=== PATIENT | female | born 1965 | race Caucasian/White ===

== ENCOUNTER 2019-02-12 21:18 | Emergency (ER) | payer BC | END 2019-02-12 22:17 | disposition home or self-care (01) | LOC: MADERS 21:18 | DX: J06.9 Acute upper respiratory infection, unspecified (principal); F17.210 Nicotine dependence, cigarettes, uncomplicated; Z79.899 Other long term (current) drug therapy | CPT/HCPCS: 87081; 87430; 87804; 99283 ==

== ENCOUNTER 2019-03-25 11:17 | Outpatient (CLI) | payer BC ==
--- NOTE | 2019-03-25 11:44 | RAD ---
3 views left second toe: 03/25/2019 COMPARISON: None HISTORY: Injury, trauma, pain FINDINGS: No fracture or dislocation. No radiopaque foreign body or subcutaneous gas. IMPRESSION: No acute findings.
[2019-03-25 12:03] LABS: #Basophils 0.1 thou/uL (0.0-0.2); #Eosinphils 0.2 thou/uL (0.0-0.7); #Lymphocytes 1.6 thou/uL (1.20-3.40); #Monocytes 0.4 thou/uL (0.11-0.59); #Neutrophils 4.1 thou/uL (1.40-6.50); %Basophils 1.3 % (0.0-1.0); %Eosinophils 2.7 % (0.0-10.0); %Lymphocytes 25.2 % (21.0-51.0); %Neutrophils 63.8 % (42.0-75.0); Hemoglobin 13.3 g/dL (12.0-16.0); Mean Corpuscular HGB CONC 32.5 g/dL (32.0-36.0); Mean Corpuscular Hemoglobin 32.7 pg (27.0-31.0); Mean Corpuscular Volume 100.7 fL (78.0-98.0); Mean Platelet Volume 4.5 fL (7.4-10.4); Platelet Count 404 thou/uL (130-400); RBC Distribution Width 12.8 % (11.5-14.5); Red Blood Cell (RBC) Count 4.06 mill/uL (4.20-5.40); White Blood Cell (WBC) Count 6.4 thou/uL (4.8-10.8)
[2019-03-25 12:16] LABS: ALT (SGPT) 10 U/L (8-55); AST (SGOT) 19 U/L (5-34); Albumin 4.4 g/dL (3.5-5.0); Alkaline Phosphatase 78 U/L (40-150); Anion Gap 16 mmol/L (10-20); BUN (Urea Nitrogen) 10 mg/dL (9.8-20.1); Bilirubin, Total 0.3 mg/dL (0.2-1.2); Calc. Creatinine Clearance 0 mL/min (70-130); Calcium 9.5 mg/dL (7.8-10.44); Carbon Dioxide 25 mmol/L (22-29); Chloride 104 mmol/L (98-107); Estimated GFR-MDRD 89; Globulin 2.8 g/dL (2.4-3.5); Glucose 81 mg/dL (70-105); Potassium 4.6 mmol/L (3.5-5.1); Protein, Total 7.2 g/dL (6.0-8.3); Sodium 140 mmol/L (136-145)
[2019-03-25 12:36] LABS: Thyroid Stimulating Hormone 0.8811 uIU/mL (0.35-4.94)
[2019-03-25 16:49] LABS: Hemoglobin A1c 5.2 % (4.0-6.0)
[2019-03-25 17:15] LABS: Syphilis Antibody Nonreactive (Nonreactive)
[2019-03-25 17:17] LABS: HBSAg Index 0.62 S/CO (0-0.99); HIV (1/2) Antibody/Antigen Non-Reactive (NonReactive); Hep A IgM AB Non-Reactive (NonReactive); Hep B Surf Ag Non-Reactive S/CO (NonReactive); Hep C IgG Ab Non-Reactive (NonReactive)
[2019-03-25 17:23] LABS: HBCM Index 1.35 S/CO (0-0.79); Hepatitis B Core IgM Abs Reactive (NonReactive)
== END 2019-03-25 11:18 | disposition home or self-care (01) ==
LOC: MADLABBHPM 11:17
PROVIDERS: ATTEND Family Medicine
DX: M79.675 Pain in left toe(s) (principal); R63.4 Abnormal weight loss; Z87.898 Personal history of other specified conditions
CPT/HCPCS: 36415; 80053; 80074; 83036; 84443; 85025; 86780; 87389

== ENCOUNTER 2020-06-17 16:06 | Emergency (ER) | payer OTHER, SELFPAY ==
[~2020-06-17 16:06] MED LIST: Sodium Chloride 0.9% 1,000 ML BAG ONE
--- NOTE | 2020-06-17 17:46 | RAD ---
PORTABLE CHEST: 06/17/20 HISTORY: Syncope, fatigue. Heart size and mediastinum are within normal limits. The lungs are clear of any infiltrative process. Bones appear slightly demineralized. IMPRESSION: No active intrathoracic disease. POS: JOHN
[2020-06-17 18:40] LABS: #Basophils 0.1 thou/uL (0.0-0.2); #Lymphocytes 0.8 thou/uL (1.20-3.40); #Monocytes 0.3 thou/uL (0.11-0.59); %Basophils 1.6 % (0.0-1.0); %Eosinophils 0.4 % (0.0-10.0); %Lymphocytes 15.7 % (21.0-51.0); %Monocytes 6.1 % (0.0-10.0); %Neutrophils 76.1 % (42.0-75.0); Hemoglobin 15.7 g/dL (12.0-16.0); Mean Corpuscular HGB CONC 31.9 g/dL (32.0-36.0); Mean Corpuscular Hemoglobin 32.9 pg (27.0-31.0); Mean Corpuscular Volume 103.1 fL (78.0-98.0); Mean Platelet Volume 5.2 fL (7.4-10.4); Platelet Count 232 thou/uL (130-400); RBC Distribution Width 11.5 % (11.5-14.5); Red Blood Cell (RBC) Count 4.76 mill/uL (4.20-5.40); White Blood Cell (WBC) Count 5.3 thou/uL (4.8-10.8)
[2020-06-17 19:19] LABS: ALT (SGPT) 27 U/L (8-55); AST (SGOT) 41 U/L (5-34); Alkaline Phosphatase 100 U/L (40-110); Anion Gap 17 mmol/L (10-20); BUN (Urea Nitrogen) 10 mg/dL (9.8-20.1); Bilirubin, Total 0.3 mg/dL (0.2-1.2); Calc. Creatinine Clearance 0 mL/min (70-130); Calcium 8.3 mg/dL (7.8-10.44); Carbon Dioxide 23 mmol/L (22-29); Chloride 104 mmol/L (98-107); Estimated GFR-MDRD Greater than 90; Globulin 2.6 g/dL (2.4-3.5); Glucose 99 mg/dL (70-105); Potassium 4.2 mmol/L (3.5-5.1); Protein, Total 6.6 g/dL (6.0-8.3)
[2020-06-17 19:25] LABS: Sodium 140 mmol/L (136-145)
[2020-06-17 19:28] LABS: Bilirubin Negative (Negative); Blood, Urine Negative (Negative); Clarity Clear (Clear); Glucose, Urine (Dipstick) Negative (Negative); Ketone, Urine Negative (Negative); Leukocyte Negative (Negative); Nitrite Negative (Negative); Protein, Urine (Dipstick) Negative (Neg-Trace); Urobilinogen 0.2 mg/dL (Less than 2)
[2020-06-19 12:09] LABS: SARS-CoV-2 MS2 Positive; SARS-CoV-2 N Gene Negative; SARS-CoV-2 S Gene Negative; SARS-CoV-2 orf1ab Negative
== END 2020-06-17 19:48 | disposition home or self-care (01) ==
LOC: MADERS 16:06
DX: R53.83 Other fatigue (principal); Z20.828 Contact with and (suspected) exposure to other viral communicable diseases; Z87.891 Personal history of nicotine dependence; Z79.899 Other long term (current) drug therapy
CPT/HCPCS: 36415; 71045; 80053; 81003; 83880; 84443; 84484; 85025; 85379; 87635; 93005; J7050; U0003

== ENCOUNTER 2021-07-20 19:27 | Emergency (ER) | payer BC | END 2021-07-20 22:45 | disposition left against medical advice (07) | LOC: MADERS 19:27 | DX: Z53.21 Procedure and treatment not carried out due to patient leaving prior to being seen by health care provider (principal) ==

== ENCOUNTER 2022-05-15 22:17 | Emergency (ER) | payer BC | END 2022-05-15 22:30 | disposition left against medical advice (07) | LOC: MADERS 22:17 | DX: Z53.21 Procedure and treatment not carried out due to patient leaving prior to being seen by health care provider (principal) ==

== ENCOUNTER 2022-10-11 03:24 | Emergency (ER) | payer BC ==
[2022-10-11] MEDS ORDERED: Lorazepam 1 MG TAB ONE (04:13)
[2022-10-11 04:15] LABS: Bilirubin Negative (Negative); Blood, Urine Negative (Negative); Clarity Slightly Cloudy (Clear); Glucose, Urine (Dipstick) Negative (Negative); Ketone, Urine Trace mg/dL (Negative); Leukocyte Trace (Negative); Nitrite Positive (Negative); Protein, Urine (Dipstick) Negative (Neg-Trace); Urobilinogen 0.2 mg/dL (Less than 2)
[2022-10-11 04:35] LABS: Amphetamine Not Detected (NotDetected); Barbiturates Screen Not Detected (NotDetected); Benzodiazepine Screen Not Detected (NotDetected); Cocaine Metabolite Screen Not Detected (NotDetected); Medtox Control Line Valid? VALID (VALID); Methadone Not Detected (NotDetected); Methamphetamine Not Detected (NotDetected); Opiate Screen Not Detected (NotDetected); Oxycodone Screen Not Detected (NotDetected); Phencyclidine (PCP) Not Detected (NotDetected); THC/Cannabinoid Screen Not Detected (NotDetected); Tricyclic Screen Detected (NotDetected)
[2022-10-11 04:53] LABS: Bacteria/HPF 4+ HPF (None Seen); RBC/HPF 0-3 HPF (0-3); Transitional Epithelial 0-3 HPF (None Seen)
[2022-10-11 04:56] LABS: #Monocytes 0.5 thou/uL (0.11-0.59); #Neutrophils 2.4 thou/uL (1.40-6.50); %Basophils 1.3 % (0.0-1.0); %Eosinophils 0.3 % (0.0-10.0); %Lymphocytes 24.9 % (21.0-51.0); %Monocytes 12.3 % (0.0-10.0); %Neutrophils 61.3 % (42.0-75.0); Hemoglobin 14.8 g/dL (12.0-16.0); MDiff Complete? YES; Mean Corpuscular HGB CONC 34.3 g/dL (32.0-36.0); Mean Corpuscular Hemoglobin 34.1 pg (27.0-31.0); Mean Corpuscular Volume 99.4 fl (78.0-98.0); Mean Platelet Volume 5.9 fL (7.4-10.4); Platelet Count 136 10x3/uL (130-400); RBC Distribution Width 14.2 % (11.5-14.5); Red Blood Cell (RBC) Count 4.35 mill/uL (4.20-5.40); Target Cells SLIGHT = 2-5 cells (100X) (0-1/hpf); White Blood Cell (WBC) Count 3.9 10x3/uL (4.8-10.8)
[2022-10-11 05:01] LABS: ALT (SGPT) 116 U/L (8-55); AST (SGOT) 134 U/L (5-34); Acetaminophen Less than 10.0 mcg/mL (10.0-30.0); Albumin 4.5 g/dL (3.5-5.0); Alcohol 242 mg/dL (Less than 10); Alkaline Phosphatase 137 U/L (40-110); Anion Gap 22 mmol/L (10-20); BUN (Urea Nitrogen) 5 mg/dL (9.8-20.1); Bilirubin, Total 0.6 mg/dL (0.2-1.2); Calc. Creatinine Clearance 0 mL/min (70-130); Calcium 9.2 mg/dL (7.8-10.44); Carbon Dioxide 27 mmol/L (22-29); Chloride 97 mmol/L (98-107); Estimated GFR 104; Globulin 3.4 g/dL (2.4-3.5); Glucose 109 mg/dL (70-105); Potassium 2.9 mmol/L (3.5-5.1); Protein, Total 7.9 g/dL (6.0-8.3); Salicylate Less than 8.0 mg/dL (15.0-30.0); Sodium 143 mmol/L (136-145)
[2022-10-11 08:48] LABS: SARS-CoV-2 NAA Rapid Test Not Detected (NotDetected)
[2022-10-11] MEDS ORDERED: Magnesium Oxide 400 MG TAB ONE (09:55)
[2022-10-11] MEDS ORDERED: Potassium Chloride 20 MEQ TAB ONE (09:55)
== END 2022-10-11 10:03 | disposition home or self-care (01) ==
LOC: MADERS 03:24
DX: F10.129 Alcohol abuse with intoxication, unspecified (principal); E87.6 Hypokalemia; N39.0 Urinary tract infection, site not specified; F17.210 Nicotine dependence, cigarettes, uncomplicated; Y90.8 Blood alcohol level of 240 mg/100 ml or more; Z20.822 Contact with and (suspected) exposure to COVID-19
CPT/HCPCS: 80053; 80306; 80307; 81003; 81015; 84443; 85025; 87077; 87086; 87186; U0002

== ENCOUNTER 2023-04-20 22:31 | Emergency (ER) | payer BC, SELFPAY ==
[2023-04-20 22:58] LABS: #Basophils 0.1 thou/uL (0.0-0.2); #Monocytes 0.7 thou/uL (0.11-0.59); %Basophils 1.1 % (0.0-1.0); %Eosinophils 0.6 % (0.0-10.0); %Lymphocytes 21.1 % (21.0-51.0); %Monocytes 13.9 % (0.0-10.0); %Neutrophils 63.3 % (42.0-75.0); Hemoglobin 12.8 g/dL (12.0-16.0); Mean Corpuscular HGB CONC 34.8 g/dL (32.0-36.0); Mean Corpuscular Volume 103.7 fl (78.0-98.0); Mean Platelet Volume 5.4 fL (7.4-10.4); Platelet Count 369 10x3/uL (130-400); RBC Distribution Width 11.9 % (11.5-14.5); Red Blood Cell (RBC) Count 3.54 mill/uL (4.20-5.40); White Blood Cell (WBC) Count 4.8 10x3/uL (4.8-10.8)
[2023-04-20 23:15] LABS: ALT (SGPT) 8 U/L (8-55); AST (SGOT) 15 U/L (5-34); Acetaminophen Less than 10 mcg/mL (10.0-30.0); Albumin 3.7 g/dL (3.5-5.0); Alcohol 52.9 mg/dL (Less than 10); Alkaline Phosphatase 150 U/L (40-110); Anion Gap 21 mmol/L (10-20); BUN (Urea Nitrogen) 9 mg/dL (9.8-20.1); Bilirubin, Total 0.2 mg/dL (0.2-1.2); Calc. Creatinine Clearance 0 mL/min (70-130); Calcium 8.5 mg/dL (7.8-10.44); Carbon Dioxide 20 mmol/L (22-29); Chloride 103 mmol/L (98-107); Estimated GFR 102; Globulin 2.4 g/dL (2.4-3.5); Glucose 126 mg/dL (70-105); Potassium 3.5 mmol/L (3.5-5.1); Protein, Total 6.1 g/dL (6.0-8.3); Salicylate Less than 8.0 mg/dL (15.0-30.0); Sodium 140 mmol/L (136-145)
[2023-04-20] MEDS ORDERED: Lorazepam 2 MG/ML VIAL ONE (23:23)
[2023-04-21 02:04] LABS: Lactic Acid 1.9 mmol/L (0.5-2.2)
== END 2023-04-21 02:58 | disposition short-term general hospital (02) ==
LOC: MADERS 22:31
DX: G40.901 Epilepsy, unspecified, not intractable, with status epilepticus (principal); G93.40 Encephalopathy, unspecified; F17.200 Nicotine dependence, unspecified, uncomplicated
CPT/HCPCS: 70450; 80053; 80307; 83605; 85025; 93005; 96360; J2060